=== PATIENT | male | born 1985 | race Hispanic/Latino ===

== ENCOUNTER 2022-01-22 08:43 | Day surgery (SDC) | payer OTHER ==
[2022-01-22] MEDS ORDERED: CEFAZOLIN 2 GM in NA CHLORIDE 0.9% 100 ML IVPB ONE (09:00)
[2022-01-22 09:18] LABS: Absolute Lymphocytes (CBC) 2.5 K/uL (0.7-4.9); Hematocrit 43.5 % (39.6-49.0); MPV 8.6 fL (7.6-11.3)
[2022-01-22 09:19] LABS: Potassium 4.5 mmol/L (3.5-5.1)
--- NOTE | 2022-01-22 09:32 | RAD REPORT ---
EXAM DESCRIPTION: RAD - Chest Single View - 01/22/2022 9:26 am CLINICAL HISTORY: PRE PROCEDUR SCREENING Chest pain. COMPARISON: No comparisons FINDINGS: Portable technique limits examination quality. The lungs are grossly clear. The heart is normal in size. No displaced fractures. IMPRESSION: No acute intrathoracic process suspected.
[2022-01-22] MEDS ORDERED: Ringers Lactate 1,000 ML IV ONE (09:41)
[2022-01-22] MEDS ORDERED: CELECOXIB 100 MG CAPSULE ONE (09:41)
[2022-01-22] MEDS ORDERED: ACETAMINOPHEN 500 MG TAB ONE (09:41)
[2022-01-22] MEDS ORDERED: BUPIVACAINE 0.25% PF 10 ML VIAL ONE (09:50)
[2022-01-22] MEDS ORDERED: BUPIVACAINE 0.25% PF 10 ML VIAL IJ ONE ×2 (09:51)
[2022-01-22] MEDS ORDERED: MIDAZOLAM HCL 2 MG/2 ML INJ ONE (10:50)
[2022-01-22] MEDS ORDERED: KETOROLAC 30 MG/ML INJ ONE (10:50)
[2022-01-22] MEDS ORDERED: propofoL 200 MG/20 ML VIAL IV ONE (10:50)
[2022-01-22] MEDS ORDERED: FENTANYL CITR 100 MCG/2 ML ONE (10:50)
[2022-01-22] MEDS ORDERED: LIDOCAINE 1% MPF 5 ML VIAL ONE (10:50)
[2022-01-22] MEDS ORDERED: dexAMETHasone 10 MG/ML VIAL ONE (10:50)
[2022-01-22] MEDS ORDERED: ONDANSETRON 4 MG/2 ML VIAL ONE (10:51)
--- NOTE | 2022-01-22 10:59 | EKG ---
Test Date: 2022-01-22 Test Time: 09:30:42 Box Spinner: NILDA MEASUREMENT RESULTS: Intervals: Rate: 71 AR: 146 QRSD: 94 QT: 390 QTc: 423 [place]: P: 29 AR: 146 QRS: 98 T: -2 INTERPRETIVE STATEMENTS: Normal sinus rhythm with sinus arrhythmia Rightward axis T wave abnormality, consider inferior ischemia Abnormal ECG No previous ECG available for comparison Electronically Signed On 01-22-22 10:58:33 CDT by Td Oh
[2022-01-22] MEDS ORDERED: ROCURONIUM 50 MG/5 ML VIAL IV ONE (11:18)
[2022-01-22] MEDS ORDERED: VECURONIUM 10 MG/VIAL IV ONE (11:42)
[2022-01-22] MEDS ORDERED: NS 0.9% VIAL 10 ML ONE (11:43)
--- NOTE | 2022-01-22 12:31 | P.OP ---
Preoperative diagnosis: Ventral Incarcerated Umbilical Hernia Postoperative diagnosis: Ventral Incarcerated Umbilical Hernia Primary procedure: Laparoscopic Umbilical hernia repair with mesh Anesthesia: GETA + Local Estimated blood loss: <5cc Specimen: none Findings: incarcerated omental hernia Complications: None Implants: 11.4cm Round Bard Ventralite ST mesh, sorbafix Transferred to: Recovery Room Condition: Good
[2022-01-22] MEDS ORDERED: HYDROCODONE/APAP 10/325 TAB ONE (13:58)
[2022-01-22 14:10] VITALS: BP 129/79; TEMP 97.4; O2SAT 99
--- NOTE | 2022-01-23 00:45 | OP ---
Date of Procedure: 01/22/2022 Surgeon: Andres Rock MD, Preoperative Diagnosis: Ventral incarcerated umbilical hernia. Postoperative Diagnosis: Ventral incarcerated umbilical hernia. Procedure Performed: A laparoscopic umbilical hernia repair with mesh. Anesthesia: General endotracheal plus local. Estimated Blood Loss: Less than 5 cc. Specimen: None. Findings: Incarcerated omental hernia. The patient had fatty steatosis appearance to the liver. Complications: None. Implants: 11.[address] mesh with Echo Positioning System and SorbaFix Absorbable Fixa tion tacks. Disposition: The patient was transferred to recovery room in good condition. Procedure In Detail: After informed consent was obtained, the patient was brought to the operating r oom and prepped and draped in the usual sterile fashion. After adequate anesthesia was achieved, an area in the left lower quadrant was anesthetized with 0.25% Marcaine, sharply incised and a 5 mm 0-de gree optical trocar was introduced in the abdomen without any evidence of complication. Insufflation was obtained to 15 mmHg at this time and there was no injury to vital structures upon entry into the abdomen. Additional trocar was placed in the left lower quadrant, similarly anesthetized, sharply i ncised, and a 12 mm trocar was placed under direct visualization without any evidence of complication . I then used the LigaSure to remove the omentum, which was incarcerated into the umbilical hernia u sing a combination of electrocautery and blunt dissection. After the incarcerated omentum was return ed to the preperitoneal position, I then cleaned the preperitoneal fat and removed it to allow for ap propriate landing zone of the mesh to be placed in the anterior bowel wall. After sizing the mesh ap propriately, it was prepared on the back table. At this point, an Endo stitch with a V-Loc was used to close the umbilical hernia defect and imbricate the hernia sac to eliminate the space in a ru nning baseball stitch type fashion. After this was sewn closed and good apposition of the tissue was appreciated, I then deployed the Bard Ventralight ST mesh with Echo Positioning System. The 11.4 cm round mesh was placed centrally around the defect and secured to the anterior abdominal wall with a single crown of SorbaFix Absorbable Fixation tacks. The balloon deployment system was then removed, found to be intact on the back table, and the remaining SorbaFix tacks were placed on the anterior ab dominal wall through the mesh with good apposition of the mesh to the anterior abdominal wall. Appro ximately 50 tacks were used. There were no hemostatic measures required. The patient was positioned with the left side up. The 12 mm trocar site was closed using a Alexandru-Arian suture passer with 0 Vicryl in interrupted fashion with good approximation of tissues. The abdomen was completely desuf flated under direct visualization without any evidence of complication. All skin incisions were then copiously irrigated, closed with a 4-0 Monocryl in a running fashion and Dermabond was placed over t op. The patient tolerated the procedure without any evidence of complication and transferred to PACU in good condition. All counts were correct at the end of the case. JOEY/HA Voice ID: [id number] Report ID: [id number]
== END 2022-01-22 14:28 | disposition home or self-care (01) ==
LOC: OR 08:43
PROVIDERS: ATTEND Surgery
PROC: 0WUF4JZ Supplement Abdominal Wall with Synthetic Substitute, Percutaneous Endoscopic Approach (ICD-10-PCS; principal; 2022-01-22 11:00)
DX: K43.6 Other and unspecified ventral hernia with obstruction, without gangrene (principal); Z20.822 Contact with and (suspected) exposure to COVID-19; K76.0 Fatty (change of) liver, not elsewhere classified
CPT/HCPCS: 93005; 85025; 80048; 36415; 71045; 49653; U0003; J2704; J2250; J3010; J1100; J7120; J2405; J0690; C1781